=== PATIENT | male | born 1980 | race Caucasian/White ===

== ENCOUNTER 2019-02-01 21:02 | Emergency (ER) | payer OTHER ==
[~2019-02-01] VITALS: Ht 185.4 cm; Wt 93.0 kg
[2019-02-01] MEDS ORDERED: LEVOTHYROXINE50 MCG PO (21:13)
== END 2019-02-01 21:59 | disposition home or self-care (01) ==
LOC: ED 21:02
PROC: 0HQGXZZ Repair Left Hand Skin, External Approach (ICD-10-PCS; principal; 2019-02-01)
DX: S61.412A Laceration without foreign body of left hand, initial encounter (principal); Z91.09 Other allergy status, other than to drugs and biological substances; Z79.899 Other long term (current) drug therapy; W45.8XXA Other foreign body or object entering through skin, initial encounter
CPT/HCPCS: 12001; 90471; 90715; 99282-25

== ENCOUNTER 2025-07-07 19:49 | Emergency (ER) | payer BC ==
[~2025-07-07] VITALS: Ht 185.4 cm; Wt 99.0 kg
[~2025-07-07 19:49] MED LIST: LEVOTHYROXINE50 MCG PO
[2025-07-07] MEDS ORDERED: VITAMIN D325 MC2 PO (20:12)
[2025-07-07 20:28] LABS: BLOOD/HGB, URINE LARGE (Negative); KETONE, URINE TRACE (Negative); LEUK ESTERASE, URINE NEGATIVE (negative); NITRITE, URINE NEGATIVE (negative)
[2025-07-07 20:47] LABS: BACTERIA, URINE RARE /hpf (negative); CASTS, URINE NONE SEEN \\lpf; CRYSTALS, URINE CALCIUM OXALATE 1+ (0-1+); EPITHELIAL CELLS, URINE SQUAMOUS 1+ /lpf (0-1+); REFLEX CULTURE, URINE No (No)
[2025-07-07 21:31] LABS: BASOPHILS 0.7 % (0.2-1.2); EOSINOPHILS 6.6 % (0.8-7.0); LYMPHOCYTES 25.6 % (21.8-53.1); MCH 28.2 PG (25.7-32.2); MCHC 33.3 g/dL (32.3-36.5); MCV 84.9 fL (79.0-92.2); MONOCYTES 14.3 % (5.3-12.2); NEUTROPHILS 52.5 % (34.0-67.9); RBC 4.85 M/uL (4.63-6.08)
[2025-07-07 21:44] LABS: ALT (SGPT) 41.0 U/L (14-59); AST (SGOT) 21.0 U/L (15-37); GLOMERULAR FILTRATION RATE,EST 78.0 mL/min (>60); PROTEIN, TOTAL 6.4 g/dL (6.4-8.2); UREA NITROGEN 15.0 mg/dL (7-18)
[2025-07-07 22:35] VITALS: BP 128/73
== END 2025-07-07 22:36 | disposition home or self-care (01) ==
LOC: ED 19:49
PROVIDERS: Internal Medicine
DX: N20.0 Calculus of kidney (principal); N21.0 Calculus in bladder; Z91.048 Other nonmedicinal substance allergy status; Z79.890 Hormone replacement therapy
CPT/HCPCS: 36415; 74176; 80053; 81001; 83690; 85025; 99284-25